=== PATIENT | female | born 1985 | race African-American/Black ===

== ENCOUNTER 2017-08-08 10:34 | Inpatient (IN) | payer OTHER ==
[2017-08-08 12:05] VITALS: BMI 19.3
--- NOTE | 2017-08-08 13:28 | HP ---
Admission ROS [facility] Chief Complaint: I am here for rehab. Allergies/Adverse Reactions: Allergies Allergy/AdvReac Type Severity Reaction Status Date / Time No Known Allergies Allergy Verified 08/08/17 12:21 History of Present Illness: Pt is a 31yr old female with a history of PCP dependence seeking rehab for treatment. Exam Limitations: No Limitations - Ebola screening Have you traveled outside of the country in the last 21 days: No (N) Have you had contact with anyone from an Ebola affected area: No Have you been sick,other than usual withdrawal symptoms: No Do you have a fever: No - Review of Systems Constitutional: No Symptoms Reported EENT: reports: No Symptoms Reported Respiratory: reports: No Symptoms reported Cardiac: reports: No Symptoms Reported GI: reports: No Symptoms Reported : reports: No Symptoms Reported Musculoskeletal: reports: Back Pain Integumentary: reports: No Symptoms Reported Neuro: reports: No Symptoms reported Endocrine: reports: No Symptoms Reported Hematology: reports: Anemia Psychiatric: reports: No Sypmtoms Reported, Judgement Intact, Mood/Affect Appropiate, Orientated x3, Anxious Other Systems: Reviewed and Negative Patient History - Patient Medical History Hx Anemia: Yes (on ferrous sulfate 325 mgs once a day) Hx Asthma: No Hx Chronic Obstructive Pulmonary Disease (COPD): No Hx Cancer: No Hx Cardiac Disorders: No Hx Congestive Heart Failure: No Hx Hypertension: No Hx Hypercholesterolemia: No Hx Pacemaker: No HX Cerebrovascular Accident: No Hx Seizures: No Hx Dementia: No Hx Diabetes: No Hx Gastrointestinal Disorders: No Hx Liver Disease: No Hx Genitourinary Disorders: No Hx Sexually Transmitted Disorders: Yes (Trichomonas 1999 treated) Hx Renal Disease (ESRD): No Hx Thyroid Disease: No Hx Human Immunodeficiency Virus (HIV): No (last 2013 negative) Hx Hepatitis C: No (negative) Hx Depression: Yes Hx Suicide Attempt: No Hx Bipolar Disorder: No Hx Schizophrenia: Yes - Patient Surgical History Past Surgical History: No - PPD History Previous Implant?: Yes Documented Results: Negative w/o proof PPD to be Administered?: Yes - Reproductive History Patient is a Female of Child Bearing Age (11 -55 yrs old): Yes Last Menstrual Period: 07/26/17 Patient : No - Smoking Cessation Smoking history: Current every day smoker Have you smoked in the past 12 months: Yes Aproximately how many cigarettes per day: 20 Cigars Per Day: 0 Hx Chewing Tobacco Use: No Initiated information on smoking cessation: Yes 'Breaking Loose' booklet given: 08/08/17 - Substance & Tx. History Hx Alcohol Use: No Hx Substance Use: Yes Hx Substance Use Treatment: No - Substances Abused PCP Route: Smoking Frequency: Daily Amount used: 2 BLUNTS Age of first use: 25 Date of Last Use: 08/07/17 Family Disease History - Family Disease History Family History: Denies Admission Physical Exam [facility] - Vital Signs Vital Signs: Vital Signs - 24 hr 08/08/17 11:29 Temperature 98.0 F Pulse Rate 94 H Respiratory 18 Rate Blood Pressure 116/72 - Physical General Appearance: Yes: Appropriately Dressed, Mild Distress, Irritable HEENTM: Yes: Hearing grossly Normal, Normal Voice Respiratory: Yes: Chest Non-Tender, Lungs Clear, Normal Breath Sounds, No Respiratory Distress Neck: Yes: No masses,lesions,Nodules Breast: Yes: Within Normal Limits Cardiology: Yes: Regular Rhythm, Regular Rate, S1, S2 Abdominal: Yes: Normal Bowel Sounds, Non Tender, Soft Genitourinary: Yes: Within Normal Limits Back: Yes: Normal Inspection Musculoskeletal: Yes: full range of Motion, Back pain Extremities: Yes: Normal Capillary Refill Neurological: Yes: Fully Oriented, Alert, Normal Response Integumentary: Yes: Normal Color Lymphatic: Yes: Within Normal Limits - Diagnostic (1) PCP dependence Current Visit: Yes Status: Chronic (2) Anemia Current Visit: Yes Status: Chronic Qualifiers: Anemia type: iron deficiency Iron deficiency anemia type: unspecified iron deficiency Qualified Code(s): D50.9 - Iron deficiency anemia, unspecified (3) Nicotine dependence Current Visit: No Status: Chronic Qualifiers: Nicotine product type: cigarettes Substance use status: uncomplicated Qualified Code(s): F17.210 - Nicotine dependence, cigarettes, uncomplicated Cleared for Admission [facility] - Detox or Rehab [facility] Level of Care: Medically Managed Claeared for Rehab Admission: Yes [facility] Breath Alcohol Content Breath Alcohol Content: 0 Urine Drug Screen - Results Drug Screen Negative: No Urine Drug Screen Results: PCP-Phencyclidine Inpatient Rehab Admission - Initial Determination Are CD services needed?: Yes - Rehab Admission Criteria Lacks judgement: Yes
[2017-08-08] MEDS ORDERED: MAGNESIUM HYDROX 2400MG/30ML ORAL SUSPENSION 30 ML CUP PO PRN (13:30)
[2017-08-08] MEDS ORDERED: LOPERAMIDE HCL 2 MG CAPSULE PO PRN (13:30)
[2017-08-08] MEDS ORDERED: guaiFENesin/D-METHORPHAN HB 10 ML UNIT-DOSE CUPS PO PRN (13:30)
[2017-08-08] MEDS ORDERED: MENTHOL/PHENOL 1 EACH UD MM PRN (13:30)
[2017-08-08] MEDS ORDERED: MAG HYDROX/AL HYDROX/SIMETH 30 ML UNIT-DOSE CUP PO PRN (13:30)
[2017-08-08] MEDS ORDERED: hydrOXYzine PAMOATE 50 MG CAPSULE (FP) PO PRN (13:30)
[2017-08-08] MEDS ORDERED: P-EPHED 60MG/TRIPROLIDI 2.5MG TABLET PO PRN (13:30)
[2017-08-08] MEDS ORDERED: ACETAMINOPHEN 325 MG TABLET (FP) PO PRN (13:30)
[2017-08-08] MEDS ORDERED: MAGNESIUM CITRATE 300 ML BOTTLE PO PRN (13:30)
[2017-08-08] MEDS ORDERED: TUBERCULIN PPD 5 TU/0.1ML VIAL ID ONE (17:04)
[2017-08-08 20:08] LABS: URINE APPEARANCE SLCLOUDY; URINE BILIRUBIN NEGATIVE (NEGATIVE); URINE BLOOD 3+ (NEGATIVE); URINE COLOR YELLOW; URINE GLUCOSE (UA) NEGATIVE (NEGATIVE); URINE KETONE TRACE (NEGATIVE); URINE LEUK ESTERASE NEGATIVE (NEGATIVE); URINE NITRITE NEGATIVE (NEGATIVE); URINE PROTEIN NEGATIVE (NEGATIVE); URINE UROBILINOGEN NEGATIVE mg/dL (0.2-1.0)
[2017-08-08 20:37] LABS: URINE MUCUS FEW; URINE RBC 168 /hpf (0-3); URINE WBC 1 /hpf (3-5)
[2017-08-08] MEDS: THIAMINE HCL 100 MG TABLET (FP) PO SCH (22:12)
[2017-08-08 22:48] LABS: URINE LEUK ESTERASE Negative (NEGATIVE)
[2017-08-09 09:46] LABS: MCH 27.7 pg (25.7-33.7); MCHC 32.5 g/dl (32.0-36.0); MEAN CELL VOLUME 85.1 fl (80-96); MEAN PLT VOLUME 8.9 fl (7.5-11.1); PLATELET COUNT 291 K/MM3 (134-434); RDW 24.1 % (11.6-15.6)
[2017-08-09] MEDS: PRENATAL VITAMINS W/ FOLIC ACID TABLET (FP) PO SCH (09:48)
[2017-08-09] MEDS: NICOTINE 21 MG/24 HOURS TOPICAL PATCH TD SCH (09:48)
[2017-08-09 10:10] LABS: ALK PHOS 55 U/L (45-117); ANION GAP 10 (8-16); BILIRUBIN,TOTAL 1.3 mg/dL (0.2-1.0); CO2 24 mmol/L (21-32); CREATININE 0.6 mg/dL (0.55-1.02); GLUCOSE,RANDOM 135 mg/dL (74-106); SGOT/AST 14 U/L (15-37); SGPT/ALT 21 U/L (12-78); TOT PROT 7.3 g/dl (6.4-8.2)
[2017-08-09 10:48] LABS: ANISOCYTOSIS 2+; MICROCYTOSIS 1+; TARGET CELLS FEW
[2017-08-09] MEDS: THIAMINE HCL 100 MG TABLET (FP) PO SCH (21:17)
--- NOTE | 2017-08-10 08:45 | EKG ---
Test Reason : Blood Pressure : / mmHG Vent. Rate : 085 BPM Atrial Rate : 085 BPM P-R Int : 146 ms QRS Dur : 072 ms QT Int : 372 ms P-R-T Axes : 066 041 071 degrees QTc Int : 442 ms NORMAL SINUS RHYTHM POSSIBLE LEFT ATRIAL ENLARGEMENT BORDERLINE ECG NO PREVIOUS ECGS AVAILABLE Confirmed by SALONI MEZA, SIDNEY ([id number]) on 08/10/2017 8:44:54 AM Referred By: Confirmed By:SIDNEY GUALLPA MD
[2017-08-10] MEDS: NICOTINE 21 MG/24 HOURS TOPICAL PATCH TD SCH (09:57)
[2017-08-10] MEDS: PRENATAL VITAMINS W/ FOLIC ACID TABLET (FP) PO SCH (09:57)
[2017-08-10] MEDS: THIAMINE HCL 100 MG TABLET (FP) PO SCH (21:15)
[2017-08-11] MEDS: PRENATAL VITAMINS W/ FOLIC ACID TABLET (FP) PO SCH (09:46)
[2017-08-11] MEDS: NICOTINE 21 MG/24 HOURS TOPICAL PATCH TD SCH (09:47)
[2017-08-11] MEDS: IBUPROFEN 400 MG TABLET (FP) PO PRN (09:48)
[2017-08-11] MEDS: NICOTINE POLACRILEX 4 MG GUM BUC PRN (09:48)
--- NOTE | 2017-08-11 19:14 | HP ---
Psychiatrist Admission - Data Date of interview: 08/11/17 Admission source: [facility] Identifying data: Readmission to [address] for this 31 y/o AA female seeking rehabilitation treatment for marihuana (K2) and phencyclidine dependence.Patient is single,a mother of four,domiciled,unemployed and supported on SSI benefits. Medical History: Remarkable for anemia (on iron supplement),lower back pain, past history of hiatal hernia and antecedent of treatment for trichomonas infection. Psychiatric History: Patient admits to a history of multiple psychiatric hospitalizations since onset of emotional disturbances at age 18.Diagnosed with Schizophrenia.Previously known to [facility].Ms Silva indicates that she used to be on lithium,seroquel,remeron and various other medications until she dropped out of [facility]PD care " a few months ago. " Totally lost to follow up.No connection with mental healthcare providers.Last seen at [facility] in April 2017.Patient denies history of suicide attempts. Physical/Sexual Abuse/Trauma History: No reported history of abuse. Additional Comment: Discussed in this session.Confirmed by patient.Details included in current [facility] report as follows : Smoking history: Current every day smoker. Have you smoked in the past 12 months: Yes. Aproximately how many cigarettes per day: 20. Cigars Per Day: 0. Hx Chewing Tobacco Use: No. Initiated information on smoking cessation: Yes. 'Breaking Loose' booklet given : 08/08/17. - Substance & Tx. History. Hx Alcohol Use: No. Hx Substance Use: Yes. Hx Substance Use Treatment: No. - Substances Abused. PCP. Route: Smoking. Frequency: Daily. Amount used: 2 BLUNTS. Age of first use: 25. Date of Last Use: 08/07/17. Urine Drug Screen Results: PCP-Phencyclidine.Noted by this copywriter. Vital Signs: Vital Signs - 24 hr 08/11/17 08/11/17 08/11/17 00:30 03:30 07:12 Temperature 98.4 F Pulse Rate 80 Respiratory 17 16 18 Rate Blood Pressure 116/77 Allergies/Adverse Reactions: Allergies Allergy/AdvReac Type Severity Reaction Status Date / Time No Known Allergies Allergy Verified 08/08/17 12:21 - Substance Abuse/Tx History Hx Alcohol Use: No Hx Substance Use: Yes (marijuana (K2),nicotine and PCP.) Substance Use Type: Marijuana Hx Substance Use Treatment: Yes Mental Status Exam - Mental Status Exam Alert and Oriented to: Time, Place, Person Cognitive Function: Good Patient Appearance: Well Groomed (thin habitus,petite frame,short stature) Mood: Hopeful, Euthymic Affect: Appropriate, Normal Range Patient Behavior: Appropriate, Cooperative Speech Pattern: Clear Voice Loudness: Normal Thought Process: Goal Oriented Thought Disorder: Not Present Hallucinations: Denies Suicidal Ideation: Denies Homicidal Ideation: Denies Insight/Judgement: Poor (limited as evidenced by refusal to resume psychotropic medications) Sleep: Well Appetite: Good Muscle strength/Tone: Normal Gait/Station: Normal Psychiatric Findings - Problem List (Cardinal 1, 2,3) (1) Schizophrenia Current Visit: Yes Status: Chronic Comment: As per records and self- report.Non-adherent to medications + OPD care. (2) Marihuana dependence Current Visit: Yes Status: Acute (3) PCP dependence Current Visit: Yes Status: Chronic (4) Nicotine dependence Current Visit: Yes Status: Chronic Qualifiers: Nicotine product type: cigarettes Substance use status: uncomplicated Qualified Code(s): F17.210 - Nicotine dependence, cigarettes, uncomplicated - Initial Treatment Plan Initial Treatment Plan: Patient is currently ASYMPTOMATIC for psychosis or ramana.Psychoeducation provided : patient is made aware of benefits of medications + continuity of OPD care and the risks inherent to refusal of treatment (relapses,rehospitalizations,increased morbidity,psychotic episodes, behavioral dyscontrol,deterioration of functioning,social downdrift,suicidality) .Patient declines to resume antipsychotic medications (for maintenance) .Observation.
[2017-08-11] MEDS: THIAMINE HCL 100 MG TABLET (FP) PO SCH (21:19)
[2017-08-12] MEDS: PRENATAL VITAMINS W/ FOLIC ACID TABLET (FP) PO SCH (09:59)
[2017-08-12] MEDS: NICOTINE 21 MG/24 HOURS TOPICAL PATCH TD SCH (09:59)
[2017-08-12] MEDS: THIAMINE HCL 100 MG TABLET (FP) PO SCH (21:12)
[2017-08-13] MEDS: NICOTINE 21 MG/24 HOURS TOPICAL PATCH TD SCH (09:57)
[2017-08-13] MEDS: PRENATAL VITAMINS W/ FOLIC ACID TABLET (FP) PO SCH (09:57)
[2017-08-13] MEDS: IBUPROFEN 400 MG TABLET (FP) PO PRN (18:59)
[2017-08-13] MEDS: THIAMINE HCL 100 MG TABLET (FP) PO SCH (21:15)
[2017-08-14] MEDS: PRENATAL VITAMINS W/ FOLIC ACID TABLET (FP) PO SCH (09:34)
[2017-08-14] MEDS: NICOTINE 21 MG/24 HOURS TOPICAL PATCH TD SCH (09:35)
[2017-08-14] MEDS: IBUPROFEN 400 MG TABLET (FP) PO PRN (09:36)
[2017-08-14] MEDS: THIAMINE HCL 100 MG TABLET (FP) PO SCH (21:15)
[2017-08-15] MEDS: PRENATAL VITAMINS W/ FOLIC ACID TABLET (FP) PO SCH (10:00)
[2017-08-15] MEDS: NICOTINE 21 MG/24 HOURS TOPICAL PATCH TD SCH (10:00)
[2017-08-15] MEDS: THIAMINE HCL 100 MG TABLET (FP) PO SCH (21:19)
[2017-08-16] MEDS: PRENATAL VITAMINS W/ FOLIC ACID TABLET (FP) PO SCH (09:45)
[2017-08-16] MEDS: NICOTINE 21 MG/24 HOURS TOPICAL PATCH TD SCH (09:46)
[2017-08-16] MEDS: THIAMINE HCL 100 MG TABLET (FP) PO SCH (21:11)
[2017-08-16] MEDS: NICOTINE POLACRILEX 4 MG GUM BUC PRN (21:13)
[2017-08-17] MEDS: PRENATAL VITAMINS W/ FOLIC ACID TABLET (FP) PO SCH (09:21)
[2017-08-17] MEDS: NICOTINE 21 MG/24 HOURS TOPICAL PATCH TD SCH (09:21)
[2017-08-17] MEDS: IBUPROFEN 400 MG TABLET (FP) PO PRN (18:39)
[2017-08-17] MEDS: THIAMINE HCL 100 MG TABLET (FP) PO SCH (21:11)
[2017-08-18 07:14] VITALS: BP 114/73; PULSE 71; TEMP 97.8
[2017-08-18] MEDS: PRENATAL VITAMINS W/ FOLIC ACID TABLET (FP) PO SCH (09:42)
[2017-08-18] MEDS: NICOTINE 21 MG/24 HOURS TOPICAL PATCH TD SCH (09:42)
--- NOTE | 2017-08-18 09:53 | PN ---
Psychiatric Progress Note Vital Signs: Vital Signs Period Temp Pulse Resp BP Sys/Pruitt Pulse Ox Last 24 Hr 97.8 F 71 16-18 114/73 Date of Session: 08/18/17 Chief Complaint:: Discharge visit HPI: Patient addressed Cannabis and PCP dependence comorbid with Schizophrenia.Paranoid type. ROS: Significant for Anemia. Current Medications: Active Medications Generic Name Dose Route Start Last Admin Trade Name Freq PRN Reason Stop Dose Admin Acetaminophen 650 mg 08/08/17 13:30 08/15/17 07:19 Tylenol - PO 650 mg Q4H PRN Administration PAIN Al Hydroxide/Mg Hydroxide 30 ml 08/08/17 13:30 Mylanta Oral Suspension - PO Q6H PRN DYSPEPSIA Eucalyptus/Menthol/Phenol/Sorbitol 1 each 08/08/17 13:30 Cepastat Lozenge - MM Q4H PRN SORE THROAT Guaifenesin 10 ml 08/08/17 13:30 Robitussin Dm - PO Q6H PRN COUGH Hydroxyzine Pamoate 50 mg 08/08/17 13:30 08/15/17 10:02 Vistaril - PO 50 mg Q4H PRN Administration AGITATION Ibuprofen 400 mg 08/08/17 13:30 08/17/17 18:39 Motrin - PO 400 mg Q6H PRN Administration SEVERE PAIN Loperamide HCl 4 mg 08/08/17 13:30 Imodium - PO Q6H PRN DIARRHEA Magnesium Citrate 300 ml 08/08/17 13:30 Citroma - PO Q48H PRN CONSTIPATION Magnesium Hydroxide 30 ml 08/08/17 13:30 Milk Of Magnesia - PO DAILY PRN CONSTIPATION Nicotine 21 mg 08/09/17 10:00 08/18/17 09:42 Nicoderm Patch - TD Not Given DAILY KARISSA Nicotine Polacrilex 4 mg 08/08/17 13:30 08/16/17 21:13 Nicorette Gum - BUC 4 mg Q2H PRN Administration NICOTINE REPLACEMENT RX Multivit/Folic Acid/Iron 1 tab 08/09/17 10:00 08/18/17 09:42 Vitamins (Sjr) - PO 1 tab DAILY KARISSA Administration Pseudoephedrine/Triprolidine 1 combo 08/08/17 13:30 Actifed - PO TID PRN NASAL CONGESTION Thiamine HCl 100 mg 08/08/17 22:00 08/17/17 21:11 Vitamin B1 - PO 100 mg HS KARISSA Administration Current Side Effect: No Lab tests ordered: No Lab tests reviewed: Yes Provider note:: Patient completed 1 week of this program .She is going [facility] .She will continue to address her issues at [facility] term Outpatient program in the [place]. patient identifies areas of difficulties,behaviors which contribue to relapse. Supportive therapy provided focusing on coping skills,support system utilization to maitain recovery.Patient is currently stable with no psychotropic medications. She is stable for discharge today. Total face to face time:: 30 Mental Status Exam - Mental Status Exam Alert and Oriented to: Time, Place, Person Cognitive Function: Grossly Intact Patient Appearance: Unkempt Mood: Sad Affect: Mood Congruent Patient Behavior: Cooperative Speech Pattern: Clear Voice Loudness: Normal Thought Process: Goal Oriented Thought Disorder: Being Controlled Hallucinations: Denies Suicidal Ideation: Denies Homicidal Ideation: Denies Insight/Judgement: Fair Sleep: Fair Appetite: Fair Muscle strength/Tone: Normal Gait/Station: Normal Psychiatric Treatment Plan - Problem List (2) Anemia Qualifiers: Anemia type: iron deficiency Iron deficiency anemia type: unspecified iron deficiency Qualified Code(s): D50.9 - Iron deficiency anemia, unspecified (3) Nicotine dependence Qualifiers: Nicotine product type: cigarettes Substance use status: uncomplicated Qualified Code(s): F17.210 - Nicotine dependence, cigarettes, uncomplicated
== END 2017-08-18 10:55 | disposition home or self-care (01) | DRG 772 ==
LOC: YASAS 10:34 → Y3E 14:25
PROVIDERS: ADMIT Psychiatry & Neurology Psychiatry; ATTEND Psychiatry & Neurology Psychiatry
PROC: HZ42ZZZ Group Counseling for Substance Abuse Treatment, Cognitive-Behavioral (ICD-10-PCS; principal; 2017-08-08)
DX: F12.20 Cannabis dependence, uncomplicated (principal); F16.20 Hallucinogen dependence, uncomplicated; F17.210 Nicotine dependence, cigarettes, uncomplicated; F25.9 Schizoaffective disorder, unspecified; D50.9 Iron deficiency anemia, unspecified; Z87.42 Personal history of other diseases of the female genital tract
CPT/HCPCS: 36415; 80053; 81003; 81015; 85027; 86593; 93005; 93010